=== PATIENT | male | born 1940 | race Hispanic/Latino ===

== ENCOUNTER 2022-01-10 10:37 | Inpatient (IN) | payer MEDICARE ==
[~2022-01-10] VITALS: Ht 165.1 cm; Wt 72.6 kg
[2022-01-10] VITALS (7 sets, daily range): BP systolic 154–175; BP diastolic 60–82
[2022-01-10] MEDS ORDERED: FUROSEMIDE80 MG PO (11:06)
[2022-01-10] MEDS ORDERED: TERAZOSIN HCL10 MG PO (11:06)
[2022-01-10] MEDS ORDERED: SEVELAMER CARB800 MG PO (11:06)
[2022-01-10] MEDS ORDERED: ATORVASTATIN CA20 MG PO (11:06)
[2022-01-10] MEDS ORDERED: SPS15 GM/60 M PO (11:06)
[2022-01-10] MEDS ORDERED: FLUTICASONE PRO16 GM (11:06)
[2022-01-10] MEDS ORDERED: NIFEDIPINE ER90 MG PO (11:06)
[2022-01-10] MEDS ORDERED: HYDRALAZINE HCL50 MG PO (11:06)
[2022-01-10] MEDS ORDERED: PANTOPRAZOLE SO40 MG PO (11:06)
[2022-01-10 11:13] LABS: BASOPHILS % 0.1 % (0.0-1.0); HEMATOCRIT 29.8 % (38.2-49.6); HEMOGLOBIN 9.6 g/dL (14.0-18.0); LYMPHOCYTES # (AUTO) 0.3 (1.0-3.2); LYMPHOCYTES % 2.4 % (18.0-39.1); MEAN CORPUSCULAR HEMOGLOBIN 29.1 pg (28-32); MEAN CORPUSCULAR HGB CONC 32.2 g/dL (31-35); MEAN CORPUSCULAR VOLUME 90.3 fL (81-99); MONOCYTES # (AUTO) 0.7 (0.2-0.8); MONOCYTES % 4.8 % (4.4-11.3); NEUTROPHILS # (AUTO) 12.9 (2.1-6.9); NEUTROPHILS % 92.3 % (38.7-80.0); PLATELET COUNT 273 x10e3/uL (140-360); RED CELL DISTRIBUTION WIDTH 16.1 % (11.7-14.4)
[2022-01-10 11:14] LABS: INR 1.02; PROTHROMBIN TIME 14.3 seconds (11.9-14.5)
[2022-01-10 11:15] LABS: PARTIAL THROMBOPLASTIN TIME 56.6 seconds (23.8-35.5)
[2022-01-10 11:24] LABS: ALBUMIN 3.5 g/dL (3.5-5.0); ALBUMIN/GLOBULIN RATIO 1.1 (0.8-2.0); ANION GAP 26.1 mmol/L (8-16); CALCIUM 8.6 mg/dL (8.4-10.2); CREATININE, SERUM 7.49 mg/dL (0.72-1.25); MAGNESIUM 1.9 MG/DL (1.3-2.1); POTASSIUM 4.1 mmol/L (3.5-5.1)
[2022-01-10 12:43] LABS: CLARITY,URINE CLEAR (CLEAR); COLOR,URINE YELLOW (YELLOW)
[2022-01-10 12:44] LABS: KETONES,URINE 1+ (NEGATIVE); LEUKOCYTE ESTERASE ,URINE TRACE (NEGATIVE); NITRITE,URINE NEGATIVE (NEGATIVE); PROTEIN,URINE DIPSTICK >=300 (NEGATIVE); URINE UROBILINOGEN 0.2 mg/dL (0.2 - 1)
[2022-01-10 12:48] LABS: BACTERIA,URINE FEW /HPF; EPITHELIAL CELLS,URINE FEW /LPF; RBC,URINE 0-5 /HPF (0-5); WBC,URINE (MAN) 21-50 /HPF (0-5)
[2022-01-10] MEDS ORDERED: SODIUM CHLORIDE 0.9% 1000ML 1,000 ML ONE (13:14)
[2022-01-10] MEDS ORDERED: FLOMAX0.4 MG PO (14:09)
[2022-01-10] MEDS ORDERED: GLIPIZIDE ER5 MG PO (14:10)
[2022-01-10] MEDS ORDERED: HYDRALAZINE HCL 20 MG/ML VIAL IV PRN (15:00)
[2022-01-10] MEDS ORDERED: DEXTROSE 50% SYRINGE 50 ML IV PRN (15:00)
[2022-01-10] MEDS: INSULIN REGULAR, HUMAN 100 UNIT/1 ML SQ SCH ×2 (15:55→21:00)
[2022-01-10] MEDS: FUROSEMIDE 40 MG TAB PO SCH (16:54)
[2022-01-10] MEDS: HYDRALAZINE HCL 25 MG TAB PO SCH ×2 (16:54→20:50)
[2022-01-10] MEDS: SEVELAMER CARBONATE 800 MG TAB PO SCH (16:54)
[2022-01-10] MEDS: ATORVASTATIN 20 MG TAB PO SCH (20:50)
[2022-01-10] MEDS: TERAZOSIN HCL 5 MG CAP PO SCH (20:50)
[2022-01-10 20:57] LABS: CREATINE KINASE MB 2.2 ng/mL (0-5.0)
[2022-01-11] VITALS (9 sets, daily range): BP systolic 138–176; BP diastolic 54–94
[2022-01-11 04:50] LABS: CREATINE KINASE MB 1.6 ng/mL (0-5.0)
[2022-01-11] MEDS: FUROSEMIDE 40 MG TAB PO SCH ×2 (06:09→17:02)
[2022-01-11] MEDS: INSULIN REGULAR, HUMAN 100 UNIT/1 ML SQ SCH ×4 (07:30→20:40)
[2022-01-11] MEDS: GLIPIZIDE 2.5 MG TABCR PO SCH (08:00)
[2022-01-11] MEDS: SEVELAMER CARBONATE 800 MG TAB PO SCH ×3 (08:00→17:00)
[2022-01-11] MEDS: PANTOPRAZOLE SOD 40 MG TABEC PO SCH (09:00)
[2022-01-11] MEDS: HYDRALAZINE HCL 25 MG TAB PO SCH ×3 (09:00→21:20)
[2022-01-11 09:55] LABS: BASOPHILS # (AUTO) 0.1 (0.0-0.1); BASOPHILS % 0.8 % (0.0-1.0); EOSINOPHILS # (AUTO) 0.1 (0.0-0.4); EOSINOPHILS % 1.2 % (0.0-6.0); HEMATOCRIT 27.4 % (38.2-49.6); HEMOGLOBIN 8.7 g/dL (14.0-18.0); LYMPHOCYTES # (AUTO) 0.6 (1.0-3.2); LYMPHOCYTES % 9.8 % (18.0-39.1); MEAN CORPUSCULAR HEMOGLOBIN 28.9 pg (28-32); MEAN CORPUSCULAR HGB CONC 31.8 g/dL (31-35); MONOCYTES # (AUTO) 0.5 (0.2-0.8); MONOCYTES % 7.1 % (4.4-11.3); NEUTROPHILS # (AUTO) 5.3 (2.1-6.9); NEUTROPHILS % 80.6 % (38.7-80.0); PLATELET COUNT 270 x10e3/uL (140-360); RED BLOOD COUNT 3.01 x10e6/uL (4.3-5.7); RED CELL DISTRIBUTION WIDTH 15.8 % (11.7-14.4)
[2022-01-11 10:19] LABS: ALBUMIN 2.8 g/dL (3.5-5.0); ALBUMIN/GLOBULIN RATIO 0.9 (0.8-2.0); CALCIUM 8.5 mg/dL (8.4-10.2); CHOL/HDL RATIO 2.4 (3.9-4.7); CREATININE, SERUM 5.33 mg/dL (0.72-1.25)
[2022-01-11] MEDS: ASPIRIN 81 MG ENTERIC COATED PO SCH (11:45)
[2022-01-11] MEDS: CARVEDILOL 3.125 MG TAB PO SCH (17:00)
[2022-01-11] MEDS: TERAZOSIN HCL 5 MG CAP PO SCH (21:20)
[2022-01-11] MEDS: ATORVASTATIN 20 MG TAB PO SCH (21:21)
[2022-01-11] MEDS: NIFEDIPINE CR 30 MG TAB PO SCH (21:21)
[2022-01-11] MEDS ORDERED: ACETAMINOPHEN 325 MG TAB PO PRN (22:30)
[2022-01-12] VITALS (7 sets, daily range): BP systolic 114–172; BP diastolic 57–76
[2022-01-12] MEDS: FUROSEMIDE 40 MG TAB PO SCH ×2 (05:47→17:16)
[2022-01-12] MEDS: INSULIN REGULAR, HUMAN 100 UNIT/1 ML SQ SCH ×4 (07:30→21:00)
[2022-01-12] MEDS ORDERED: SODIUM CHLORIDE 0.9% 1000ML 2,000 ML ONE (08:10)
[2022-01-12] MEDS: PANTOPRAZOLE SOD 40 MG TABEC PO SCH ×2 (09:18→17:15)
[2022-01-12] MEDS: CARVEDILOL 3.125 MG TAB PO SCH ×2 (09:19→17:16)
[2022-01-12] MEDS: HYDRALAZINE HCL 25 MG TAB PO SCH ×3 (09:19→21:38)
[2022-01-12] MEDS: ASPIRIN 81 MG ENTERIC COATED PO SCH (09:19)
[2022-01-12] MEDS: SEVELAMER CARBONATE 800 MG TAB PO SCH ×3 (09:19→17:15)
[2022-01-12] MEDS: GLIPIZIDE 2.5 MG TABCR PO SCH (09:19)
[2022-01-12] MEDS: ATORVASTATIN 20 MG TAB PO SCH (21:37)
[2022-01-12] MEDS: TERAZOSIN HCL 5 MG CAP PO SCH (21:38)
[2022-01-12] MEDS: NIFEDIPINE CR 30 MG TAB PO SCH (21:39)
[2022-01-13] VITALS (8 sets, daily range): BP systolic 101–142; BP diastolic 47–57
[2022-01-13] MEDS: FUROSEMIDE 40 MG TAB PO SCH ×2 (06:03→17:22)
[2022-01-13 06:23] LABS: % IRON SATURATION 21 % (15-50); IRON 40 ug/dL (65-175); TOTAL IRON BINDING CAPACITY 195 ug/dL (261-478); TRANSFERRIN 139 mg/dL (174-364)
[2022-01-13 07:11] LABS: BASOPHILS % 0.6 % (0.0-1.0); EOSINOPHILS # (AUTO) 0.3 (0.0-0.4); EOSINOPHILS % 4.4 % (0.0-6.0); HEMATOCRIT 30.3 % (38.2-49.6); HEMOGLOBIN 9.5 g/dL (14.0-18.0); LYMPHOCYTES # (AUTO) 0.7 (1.0-3.2); LYMPHOCYTES % 11.8 % (18.0-39.1); MEAN CORPUSCULAR HEMOGLOBIN 28.5 pg (28-32); MEAN CORPUSCULAR HGB CONC 31.4 g/dL (31-35); MONOCYTES # (AUTO) 0.4 (0.2-0.8); NEUTROPHILS # (AUTO) 4.7 (2.1-6.9); NEUTROPHILS % 75.7 % (38.7-80.0); PLATELET COUNT 306 x10e3/uL (140-360); RED BLOOD COUNT 3.33 x10e6/uL (4.3-5.7); RED CELL DISTRIBUTION WIDTH 15.2 % (11.7-14.4)
[2022-01-13 07:26] LABS: ALBUMIN 2.9 g/dL (3.5-5.0); ANION GAP 16.2 mmol/L (8-16); CALCIUM 8.2 mg/dL (8.4-10.2); CREATININE, SERUM 8.25 mg/dL (0.72-1.25); POTASSIUM 4.2 mmol/L (3.5-5.1)
[2022-01-13] MEDS: INSULIN REGULAR, HUMAN 100 UNIT/1 ML SQ SCH ×4 (07:30→21:06)
[2022-01-13] MEDS ORDERED: SODIUM CHLORIDE 0.9% 1000ML 1,000 ML ONE (07:56)
[2022-01-13] MEDS: GLIPIZIDE 2.5 MG TABCR PO SCH (08:36)
[2022-01-13] MEDS: SEVELAMER CARBONATE 800 MG TAB PO SCH ×3 (08:36→17:22)
[2022-01-13] MEDS: ASPIRIN 81 MG ENTERIC COATED PO SCH (08:36)
[2022-01-13] MEDS: PANTOPRAZOLE SOD 40 MG TABEC PO SCH ×2 (08:37→17:22)
[2022-01-13] MEDS: HYDRALAZINE HCL 25 MG TAB PO SCH ×3 (08:39→21:07)
[2022-01-13] MEDS: CARVEDILOL 3.125 MG TAB PO SCH ×2 (08:39→17:57)
[2022-01-13] MEDS ORDERED: ALBUMIN 25% 12.5GM 50ML 150 ML IV ONE (09:09)
[2022-01-13] MEDS ORDERED: ALBUMIN 25% 12.5GM 0.25 GM/ML BTL IV PRN ×2 (10:15)
[2022-01-13] MEDS ORDERED: SODIUM CHLORIDE 0.9% 250ML 750 ML IV PRN (10:15)
[2022-01-13] MEDS ORDERED: SODIUM CHLORIDE 0.9% 1000ML 2,000 ML IV PRN (10:15)
[2022-01-13] MEDS: IRON SUCROSE 100 MG in SODIUM CHLORIDE 0.9% 100 ML 100 ML IV SCH (17:37)
[2022-01-13] MEDS: ATORVASTATIN 20 MG TAB PO SCH (21:07)
[2022-01-13] MEDS: NIFEDIPINE CR 30 MG TAB PO SCH (21:07)
[2022-01-13] MEDS: TERAZOSIN HCL 5 MG CAP PO SCH (21:07)
[2022-01-14] VITALS (9 sets, daily range): BP systolic 97–148; BP diastolic 37–62
[2022-01-14] MEDS ORDERED: DEXTROSE 50% SYRINGE 50 ML IV STA (01:00)
[2022-01-14] MEDS ORDERED: FOLIC ACID 1 MG TAB PO ONE (01:00)
[2022-01-14] MEDS ORDERED: CYANOCOBALAMIN INJ 1,000 MCG/ML VIAL IM ONE (01:00)
[2022-01-14] MEDS: FUROSEMIDE 40 MG TAB PO SCH ×2 (06:38→17:07)
[2022-01-14] MEDS: INSULIN REGULAR, HUMAN 100 UNIT/1 ML SQ SCH ×3 (07:30→16:30)
[2022-01-14] MEDS: SEVELAMER CARBONATE 800 MG TAB PO SCH ×3 (08:00→16:42)
[2022-01-14] MEDS: GLIPIZIDE 2.5 MG TABCR PO SCH (08:00)
[2022-01-14] MEDS: PANTOPRAZOLE SOD 40 MG TABEC PO SCH ×2 (09:00→16:42)
[2022-01-14] MEDS: HYDRALAZINE HCL 25 MG TAB PO SCH ×2 (09:00→15:00)
[2022-01-14] MEDS: ASPIRIN 81 MG ENTERIC COATED PO SCH (09:00)
[2022-01-14] MEDS ORDERED: CYANOCOBALAMIN INJ 1,000 MCG/ML VIAL IM SCH (09:00)
[2022-01-14] MEDS: CARVEDILOL 3.125 MG TAB PO SCH ×2 (09:00→17:00)
[2022-01-14] MEDS ORDERED: FOLIC ACID 1 MG TAB PO SCH ×2 (09:00)
[2022-01-14] MEDS ORDERED: EPOETIN ALFA-EPBX 10,000 UNIT/ML VIAL SC ONE (10:00)
[2022-01-14] MEDS: IRON SUCROSE 100 MG in SODIUM CHLORIDE 0.9% 100 ML 100 ML IV SCH (10:30)
== END 2022-01-14 18:15 | disposition home or self-care (01) | DRG 291 ==
LOC: ER 11:04 → ERHOLD 12:02 → MED/SURG2 12:40
PROVIDERS: ADMIT Internal Medicine; ATTEND Internal Medicine
PROC: 5A1D70Z Performance of Urinary Filtration, Intermittent, Less than 6 Hours Per Day (ICD-10-PCS; principal; 2022-01-12)
DX: I13.2 Hypertensive heart and chronic kidney disease with heart failure and with stage 5 chronic kidney disease, or end stage renal disease (principal); N18.6 End stage renal disease; I50.33 Acute on chronic diastolic (congestive) heart failure; E11.22 Type 2 diabetes mellitus with diabetic chronic kidney disease; Z99.2 Dependence on renal dialysis; Z79.899 Other long term (current) drug therapy; E78.5 Hyperlipidemia, unspecified; R77.8 Other specified abnormalities of plasma proteins; K21.9 Gastro-esophageal reflux disease without esophagitis; D63.1 Anemia in chronic kidney disease; D50.9 Iron deficiency anemia, unspecified; D52.9 Folate deficiency anemia, unspecified; Z99.81 Dependence on supplemental oxygen; N40.0 Benign prostatic hyperplasia without lower urinary tract symptoms
CPT/HCPCS: 36415; 70450; 71045; 80053; 80061; 81001; 82550; 82553; 82607; 82746; 82948; 83540; 83735; 83880; 84466; 84484; 85025; 85045; 85610; 85730; 86705; 86706; 87040; 87086; 87340; 93005; 93306; 94799; 99251; 99284; J1756; J3420; J7030; J7799; U0002